=== PATIENT | female | born 1970 | race Caucasian/White ===

== ENCOUNTER 2016-06-03 17:24 | Emergency (ER) | payer OTHER ==
[2016-06-03 19:24] LABS: HEMOGLOBIN 14.5 gm/dl (12.3-15.3); RED BLOOD COUNT 4.69 M/UL (4.00-5.10); WHITE BLOOD COUNT 12.5 K/UL (4.5-11.0)
[2016-06-03 19:49] LABS: BUN/CREATININE RATIO 15 (0-10)
== END 2016-06-03 21:00 | disposition home or self-care (01) ==
LOC: ER1 17:24
PROVIDERS: Emergency Medicine
DX: N39.0 Urinary tract infection, site not specified (principal); E11.9 Type 2 diabetes mellitus without complications; I10 Essential (primary) hypertension; F17.200 Nicotine dependence, unspecified, uncomplicated
CPT/HCPCS: 36415; 71020; 80053; 81001; 83605; 84703; 85025; 87040; 87081; 87880; 96361; 96374; 96375; 96376; 99283; C9113; J1200; J2270; J2405

== ENCOUNTER 2016-06-14 19:09 | Emergency (ER) | payer SELFPAY | END 2016-06-14 23:05 | disposition left against medical advice (07) | LOC: ER1 19:09 | DX: Z53.21 Procedure and treatment not carried out due to patient leaving prior to being seen by health care provider (principal) | CPT/HCPCS: 99284 ==

== ENCOUNTER 2016-06-16 14:57 | Emergency (ER) | payer OTHER | END 2016-06-16 20:26 | disposition home or self-care (01) | LOC: ER1 14:57 | DX: S09.90XA Unspecified injury of head, initial encounter (principal); S80.02XA Contusion of left knee, initial encounter; S80.01XA Contusion of right knee, initial encounter; V89.2XXA Person injured in unspecified motor-vehicle accident, traffic, initial encounter; Y92.410 Unspecified street and highway as the place of occurrence of the external cause | CPT/HCPCS: 70450; 72125; 73564; 84703; 99284 ==

== ENCOUNTER 2016-06-20 01:52 | Emergency (ER) | payer OTHER ==
[2016-06-20 04:07] LABS: HEMOGLOBIN 14.1 gm/dl (12.3-15.3); RED BLOOD COUNT 4.59 M/UL (4.00-5.10); WHITE BLOOD COUNT 15.5 K/UL (4.5-11.0)
[2016-06-20 04:18] LABS: BUN/CREATININE RATIO 18 (0-10)
== END 2016-06-20 06:00 | disposition home or self-care (01) ==
LOC: ER1 01:52
PROVIDERS: Specialist/Technologist Athletic Trainer
DX: R04.2 Hemoptysis (principal); F17.200 Nicotine dependence, unspecified, uncomplicated; E11.9 Type 2 diabetes mellitus without complications; I10 Essential (primary) hypertension; C91.10 Chronic lymphocytic leukemia of B-cell type not having achieved remission; Z90.49 Acquired absence of other specified parts of digestive tract
CPT/HCPCS: 36415; 80053; 81001; 83690; 85025; 96374; 96375; 99284; C9113; J2405; J7030

== ENCOUNTER 2016-08-04 13:16 | Observation (INO) | payer OTHER ==
[~2016-08-04] VITALS: Ht 175.3 cm; Wt 101.6 kg
[2016-08-04 14:30] LABS: HEMOGLOBIN 15.1 gm/dl (12.3-15.3); RED BLOOD COUNT 4.9 M/UL (4.00-5.10); WHITE BLOOD COUNT 8.8 K/UL (4.5-11.0)
[2016-08-04 14:55] LABS: BUN/CREATININE RATIO 15 (0-10)
[2016-08-04] MEDS ORDERED: PRAVASTATIN SOD80 MG PO (22:45)
[2016-08-04] MEDS ORDERED: METFORMIN HCL500 MG PO (22:46)
[2016-08-04] MEDS ORDERED: AMLODIPINE BESY10 MG PO (22:47)
[2016-08-04] MEDS ORDERED: ULTRAM50 MG PO (22:48)
[2016-08-04] MEDS ORDERED: VENLAFAXINE HCL75 MG PO (22:48)
[2016-08-05 06:47] LABS: HEMOGLOBIN 13.8 gm/dl (12.3-15.3); RED BLOOD COUNT 4.53 M/UL (4.00-5.10); WHITE BLOOD COUNT 8.6 K/UL (4.5-11.0)
[2016-08-05 07:17] LABS: BUN/CREATININE RATIO 16 (0-10)
[2016-08-05] MEDS ORDERED: ASPIR-LOW81 MG PO (15:45)
== END 2016-08-05 16:45 | disposition home or self-care (01) ==
LOC: ER1 13:16 → ZEROF 16:28 → M/S 16:28
PROVIDERS: Emergency Medicine; ADMIT Hospitalist
DX: R07.9 Chest pain, unspecified (principal); E87.6 Hypokalemia; I10 Essential (primary) hypertension; E11.9 Type 2 diabetes mellitus without complications; E78.5 Hyperlipidemia, unspecified; F32.9 Major depressive disorder, single episode, unspecified; K21.9 Gastro-esophageal reflux disease without esophagitis; R00.1 Bradycardia, unspecified; C91.10 Chronic lymphocytic leukemia of B-cell type not having achieved remission; E66.9 Obesity, unspecified; Z87.19 Personal history of other diseases of the digestive system; Z79.82 Long term (current) use of aspirin; Z79.891 Long term (current) use of opiate analgesic; Z79.899 Other long term (current) drug therapy; Z90.49 Acquired absence of other specified parts of digestive tract; Z87.891 Personal history of nicotine dependence; Z68.33 Body mass index [BMI] 33.0-33.9, adult
CPT/HCPCS: 36415; 71010; 80048; 80053; 80061; 80307; 81001; 82550; 82553; 82962; 83735; 83874; 83880; 84439; 84443; 84484; 85025; 93005; 96374; 99285; G0378; J2405

== ENCOUNTER → 2016-08-21 | Outpatient (CLI) | payer OTHER ==
[~2016-08-21] MED LIST: AMLODIPINE BESY10 MG PO; ASPIR-LOW81 MG PO; METFORMIN HCL500 MG PO; PRAVASTATIN SOD80 MG PO; ULTRAM50 MG PO; VENLAFAXINE HCL75 MG PO
== END ==
LOC: KOH-I 13:05
DX: E04.1 Nontoxic single thyroid nodule (principal); R93.7 Abnormal findings on diagnostic imaging of other parts of musculoskeletal system; E04.2 Nontoxic multinodular goiter
CPT/HCPCS: 76536

== ENCOUNTER 2016-09-17 14:28 | Emergency (ER) | payer OTHER | END 2016-09-17 17:30 | disposition home or self-care (01) | LOC: ER1 14:28 | DX: J06.9 Acute upper respiratory infection, unspecified (principal); E11.9 Type 2 diabetes mellitus without complications; I10 Essential (primary) hypertension; C91.10 Chronic lymphocytic leukemia of B-cell type not having achieved remission; F17.200 Nicotine dependence, unspecified, uncomplicated; Z88.5 Allergy status to narcotic agent; Z88.8 Allergy status to other drugs, medicaments and biological substances; Z79.899 Other long term (current) drug therapy | CPT/HCPCS: 71020; 87081; 87880; 99283 ==

== ENCOUNTER 2020-08-24 11:27 | Emergency (ER) | payer OTHER ==
[~2020-08-24 11:27] MED LIST changes: +BACTRIM DS TAB1 EACH PO; +CEFUROXIME500 MG PO; +DIOVAN160 MG PO; +EFFEXOR XR150 MG PO; +K-DUR TAB 20 M20 MEQ PO; +LEVOFLOXACIN250 MG PO; +NORCO 5-325 TA1 EACH PO; +PHENERGAN 25 MG25 M1 PO; +POTASSIUM CHLO20 ME1 PO; +PROTONIX40 MG PO; -VENLAFAXINE HCL75 MG PO; +VITAMIN D350000 UNIT PO; +XIIDRA 5% EYEBOTH; +ZOFRAN4 MG PO
[2020-08-24 13:36] LABS: HEMOGLOBIN 15.8 gm/dl (12.3-15.3); RED BLOOD COUNT 5.04 M/UL (4.00-5.10); WHITE BLOOD COUNT 14.6 K/UL (4.5-11.0)
[2020-08-24 13:58] LABS: BUN/CREATININE RATIO 21 (0-10)
[2020-08-24] MEDS ORDERED: ZOFRAN ODT 4 MG4 MG PO (15:23)
== END 2020-08-24 15:50 | disposition home or self-care (01) ==
LOC: ER1 11:27
PROVIDERS: Physician Assistant Medical
DX: H69.82 Other specified disorders of Eustachian tube, left ear (principal); R42 Dizziness and giddiness; E11.9 Type 2 diabetes mellitus without complications; I10 Essential (primary) hypertension; Z90.49 Acquired absence of other specified parts of digestive tract; Z79.84 Long term (current) use of oral hypoglycemic drugs; Z79.899 Other long term (current) drug therapy
CPT/HCPCS: 71046; 80053; 81001; 84703; 85025; 93005; 96374; 96375; 99284; J1100; J2405; J7030

== ENCOUNTER 2020-11-04 22:36 | Emergency (ER) | payer OTHER ==
[~2020-11-04 22:36] MED LIST changes: +ZOFRAN ODT 4 MG4 MG PO
[2020-11-05 02:11] LABS: HEMOGLOBIN 14.6 gm/dl (12.3-15.3); RED BLOOD COUNT 4.92 M/UL (4.00-5.10)
[2020-11-05 02:39] LABS: BUN/CREATININE RATIO 13 (0-10)
[2020-11-05] MEDS ORDERED: ZITHROMAX250 MG PO (03:37)
[2020-11-05] MEDS ORDERED: OMNICEF 300 MG300 MG PO (03:37)
[2020-11-05] MEDS ORDERED: K-DUR TAB 20 M20 MEQ PO (04:28)
== END 2020-11-05 04:24 | disposition home or self-care (01) ==
LOC: ER1 22:36
PROVIDERS: Physician Assistant Medical
DX: J18.9 Pneumonia, unspecified organism (principal); E87.6 Hypokalemia; D72.829 Elevated white blood cell count, unspecified; I10 Essential (primary) hypertension; Z20.822 Contact with and (suspected) exposure to COVID-19; E11.9 Type 2 diabetes mellitus without complications; Z90.49 Acquired absence of other specified parts of digestive tract
CPT/HCPCS: 80053; 85025; 96374; 99285; J0696; Q9967; U0002

== ENCOUNTER 2021-06-23 22:05 | Emergency (ER) | payer OTHER ==
[~2021-06-23 22:05] MED LIST changes: +OMNICEF 300 MG300 MG PO; +ZITHROMAX250 MG PO
[2021-06-24 00:32] LABS: RED BLOOD COUNT 5.02 M/UL (4.00-5.10); WHITE BLOOD COUNT 29.5 K/UL (4.5-11.0)
[2021-06-24 01:02] LABS: BUN/CREATININE RATIO 18 (0-10)
== END 2021-06-24 03:10 | disposition left against medical advice (07) ==
LOC: ER1 22:05
PROVIDERS: Physician Assistant
DX: I10 Essential (primary) hypertension (principal); D72.829 Elevated white blood cell count, unspecified; Z85.6 Personal history of leukemia
CPT/HCPCS: 71045; 80053; 82550; 82553; 84484; 85025; 93005; 99283

== ENCOUNTER 2021-12-21 21:47 | Emergency (ER) | payer OTHER | END 2021-12-21 22:20 | disposition left against medical advice (07) | LOC: ER1 21:47 | DX: Z53.21 Procedure and treatment not carried out due to patient leaving prior to being seen by health care provider (principal) ==